=== PATIENT | female | born 1945 | race Caucasian/White ===

== ENCOUNTER 2017-04-02 15:00 | Inpatient (IN) | payer BC, MEDICARE, OTHER ==
[~2017-04-02] VITALS: Ht 165.1 cm; Wt 83.9 kg
[2017-04-02] MEDS ORDERED: ATOR20TA PO (15:24)
[2017-04-02] MEDS ORDERED: LISI40TA4 PO (15:24)
[2017-04-02] MEDS ORDERED: ACET-2154 PO (15:24)
[2017-04-02] MEDS ORDERED: HYDROMORPHONE 1 MG/1 ML DISP.SYRIN IV ONE ×3 (15:30→19:30)
[2017-04-02] MEDS ORDERED: HYDROMORPHONE 1 MG/1 ML DISP.SYRIN ONE ×3 (15:32→19:36)
[2017-04-02 16:07] LABS: BASOPHILS % (AUTO) 0.4 % (0.0-2.0); EOSINOPHILS % (AUTO) 0.3 % (0.0-7.0); HEMATOCRIT 44.8 % (31.2-41.9); HEMOGLOBIN 15.4 g/dL (10.9-14.3); LYMPHOCYTES # (AUTO) 0.9 K/uL (20.0-40.0); LYMPHOCYTES % (AUTO) 7.9 % (20.5-51.5); MEAN CORPUSCULAR HEMOGLOBIN 31.5 uug (24.7-32.8); MEAN CORPUSCULAR HGB CONC 34 g/dL (32.3-35.6); MEAN CORPUSCULAR VOLUME 91.7 fL (75.5-95.3); MONOCYTES # (AUTO) 0.7 K/uL (2.0-10.0); MONOCYTES % (AUTO) 5.6 % (0.0-11.0); NEUTROPHILS % (AUTO) 85.8 % (38.5-71.5); PLATELET COUNT (AUTO) 136 K/uL (179-408); RED BLOOD CELL COUNT(AUTO) 4.88 MIL/uL (3.63-4.92); WHITE BLOOD COUNT (AUTO) 11.7 K/uL (3.8-11.8)
[2017-04-02 16:23] LABS: CARBON DIOXIDE 27 mmol/L (21-32); CHLORIDE 105 mmol/L (98-107); CREATININE 1.2 mg/dL (0.6-1.3); GLUCOSE 130 mg/dL (74-106); POTASSIUM 4.5 mmol/L (3.5-5.1); UREA NITROGEN, BLOOD 20 mg/dL (7-18)
[2017-04-02] MEDS ORDERED: PRED2.5T PO (18:29)
[2017-04-02] MEDS ORDERED: MELO-107 PO (18:29)
[2017-04-02] MEDS ORDERED: IV NS 1000 ML 1,000 ML IV PRN (19:00)
[2017-04-02] MEDS ORDERED: MORPHINE SULFATE 2 MG/1 ML DISP.SYRIN IV PRN (19:00)
[2017-04-02] MEDS ORDERED: ACETAMINOPHEN 325 MG TABLET PO PRN (19:00)
[2017-04-02] MEDS ORDERED: ONDANSETRON 4 MG/2 ML VIAL IV PRN (19:00)
[2017-04-02] MEDS ORDERED: hydrALAZINE HCL 10 MG TABLET PO PRN (19:00)
[2017-04-02] MEDS ORDERED: MAGNESIUM HYDROXIDE 30 ML LIQUID UDC PO PRN (19:00)
[2017-04-02] MEDS: ATORVASTATIN 20 MG TABLET PO SCH (22:26)
[2017-04-02] MEDS: MORPHINE SULFATE 4 MG/1 ML DISP.SYRIN IV PRN (22:31)
[2017-04-02 23:00] VITALS: BP 143/87
[2017-04-03] MEDS ORDERED: ENOXAPARIN SODIUM 40 MG/0.4 ML DISP.SYRIN SQ SCH (01:15)
[2017-04-03] MEDS: MORPHINE SULFATE 4 MG/1 ML DISP.SYRIN IV PRN ×5 (03:17→18:53)
[2017-04-03 07:58] VITALS: BP 165/96
[2017-04-03] MEDS: HYDROCODONE/APAP 5-325MG TABLET PO PRN ×2 (08:15→13:53)
[2017-04-03 08:51] LABS: BASOPHILS % (AUTO) 0.3 % (0.0-2.0); EOSINOPHILS # (AUTO) 0.2 K/uL (0.0-0.7); EOSINOPHILS % (AUTO) 1.9 % (0.0-7.0); HEMATOCRIT 39.1 % (31.2-41.9); HEMOGLOBIN 13.7 g/dL (10.9-14.3); LYMPHOCYTES # (AUTO) 1.5 K/uL (20.0-40.0); MEAN CORPUSCULAR HEMOGLOBIN 32.1 uug (24.7-32.8); MEAN CORPUSCULAR HGB CONC 35 g/dL (32.3-35.6); MEAN CORPUSCULAR VOLUME 91.8 fL (75.5-95.3); MONOCYTES # (AUTO) 1.1 K/uL (2.0-10.0); MONOCYTES % (AUTO) 10.3 % (0.0-11.0); NEUTROPHILS # (AUTO) 7.5 K/uL (1.8-8.9); NEUTROPHILS % (AUTO) 72.5 % (38.5-71.5); PLATELET COUNT (AUTO) 99 K/uL (179-408); RED BLOOD CELL COUNT(AUTO) 4.26 MIL/uL (3.63-4.92); WHITE BLOOD COUNT (AUTO) 10.3 K/uL (3.8-11.8)
[2017-04-03 09:32] LABS: CARBON DIOXIDE 26 mmol/L (21-32); CHLORIDE 103 mmol/L (98-107); GLUCOSE 114 mg/dL (74-106); MAGNESIUM 1.6 mg/dL (1.8-2.4); PHOSPHOROUS 3.4 mg/dL (2.5-4.9); POTASSIUM 3.4 mmol/L (3.5-5.1); UREA NITROGEN, BLOOD 19 mg/dL (7-18)
[2017-04-03 11:00] VITALS: BP 106/58
[2017-04-03] MEDS ORDERED: POTASSIUM CHLORIDE 20 MEQ TAB.PRT.SR PO ONE (11:00)
[2017-04-03] MEDS ORDERED: MAGNESIUM SULFATE/D5W 100 ML IV SCH (11:00)
[2017-04-03] MEDS: LISINOPRIL 20 MG TABLET PO SCH (13:54)
[2017-04-03 14:58] LABS: *BILIRUBIN,URIN NEGATIVE (NEGATIVE); *BLOOD, URINE NEGATIVE (NEGATIVE); *CLARITY,URINE CLEAR (CLEAR); *COLOR,URINE YELLOW (YELLOW); *KETONES,URINE NEGATIVE (NEGATIVE); *PROTEIN,URINE 1+ (NEGATIVE); *UROBILINOGEN,URINE 0.2 E.U./dl (NORMAL); LEUKOCYTE ESTERASE ,URINE NEGATIVE (NEGATIVE); NITRITE, URINE NEGATIVE (NEGATIVE); UGLUCOSE NEGATIVE (NEGATIVE)
[2017-04-03 15:09] LABS: BACTERIA,URINE FEW /HPF (NONE SEEN); RBC,URINE 0-3 /HPF (0-3); SQUAMOUS EPITHELIAL CELL,UR FEW /HPF (NONE SEEN); WBC,URINE 0-3 /HPF (0-3)
[2017-04-03 20:00] VITALS: BP 137/84
[2017-04-03 20:33] LABS: CHOLESTEROL 146 mg/dL (<200); HDL CHOLESTEROL 69 mg/dL (40-60); TRIGLYCERIDES 78 MG/DL (30-150)
[2017-04-03] MEDS: ATORVASTATIN 20 MG TABLET PO SCH (20:36)
[2017-04-04] MEDS: MORPHINE SULFATE 4 MG/1 ML DISP.SYRIN IV PRN ×5 (00:22→17:18)
[2017-04-04 04:00] VITALS: BP 126/89
[2017-04-04 08:44] VITALS: BP 126/91
[2017-04-04] MEDS ORDERED: ENOXAPARIN SODIUM 40 MG/0.4 ML DISP.SYRIN SQ SCH (09:00)
[2017-04-04] MEDS: LISINOPRIL 20 MG TABLET PO SCH (09:08)
[2017-04-04 11:50] LABS: BASOPHILS # (AUTO) 0.1 K/uL (0.0-8.0); BASOPHILS % (AUTO) 0.8 % (0.0-2.0); EOSINOPHILS # (AUTO) 0.3 K/uL (0.0-0.7); EOSINOPHILS % (AUTO) 2.4 % (0.0-7.0); HEMATOCRIT 38.7 % (31.2-41.9); HEMOGLOBIN 13.5 g/dL (10.9-14.3); LYMPHOCYTES # (AUTO) 1.3 K/uL (20.0-40.0); LYMPHOCYTES % (AUTO) 11.3 % (20.5-51.5); MEAN CORPUSCULAR HEMOGLOBIN 31.8 uug (24.7-32.8); MEAN CORPUSCULAR HGB CONC 35 g/dL (32.3-35.6); MEAN CORPUSCULAR VOLUME 91.5 fL (75.5-95.3); MONOCYTES % (AUTO) 8.4 % (0.0-11.0); NEUTROPHILS # (AUTO) 9.1 K/uL (1.8-8.9); NEUTROPHILS % (AUTO) 77.1 % (38.5-71.5); PLATELET COUNT (AUTO) 97 K/uL (179-408); RED BLOOD CELL COUNT(AUTO) 4.23 MIL/uL (3.63-4.92); WHITE BLOOD COUNT (AUTO) 11.8 K/uL (3.8-11.8)
[2017-04-04 12:54] LABS: ALANINE AMINOTRANSFERASE 21 U/L (14-59); ALKALINE PHOSPHATASE 108 U/L (50-136); ASPARTATE AMINOTRANSFERASE 13 U/L (15-37); BILIRUBIN,TOTAL 0.9 mg/dL (0.2-1.0); CARBON DIOXIDE 26 mmol/L (21-32); CHLORIDE 99 mmol/L (98-107); GLUCOSE 117 mg/dL (74-106); MAGNESIUM 1.8 mg/dL (1.8-2.4); PHOSPHOROUS 3.2 mg/dL (2.5-4.9); TOTAL PROTEIN, SERUM 6.6 g/dL (6.4-8.2); UREA NITROGEN, BLOOD 13 mg/dL (7-18)
[2017-04-04 13:31] LABS: BAND % (MANUAL) 2 % (0-10); EOSINOPHILS % (MANUAL) 3 % (0-8); LYMPHOCYTES % (MANUAL) 16 % (20-40); MONOCYTES % (MANUAL) 8 % (2-10); NEUTROPHILS % (MANUAL) 71 % (42-75)
[2017-04-04] MEDS: HYDROCODONE/APAP 5-325MG TABLET PO PRN ×2 (17:19→21:45)
[2017-04-04 20:00] VITALS: BP 132/87
[2017-04-04] MEDS: ATORVASTATIN 20 MG TABLET PO SCH (20:10)
[2017-04-05 04:00] VITALS: BP 114/84
[2017-04-05] MEDS: MORPHINE SULFATE 4 MG/1 ML DISP.SYRIN IV PRN ×3 (04:04→21:14)
[2017-04-05] MEDS ORDERED: FENTANYL CITRATE 250 MCG/5 ML AMPUL ONE (06:50)
[2017-04-05] MEDS ORDERED: METOCLOPRAMIDE HCL 10 MG/2 ML VIAL ONE (06:50)
[2017-04-05] MEDS ORDERED: MIDAZOLAM HCL 2 MG/2 ML VIAL ONE (06:51)
[2017-04-05] MEDS ORDERED: POLYMYXIN B SULFATE 500,000 UNITS, BACITRACIN 50,000 UNITS, NORMAL SALINE 20 ML MC ONE ×3 (07:15)
[2017-04-05] MEDS ORDERED: LIDOCAINE HCL 1% 20 ML VIAL ONE (07:49)
[2017-04-05] MEDS ORDERED: BUPIVACAINE 0.25% 30 ML VIAL ONE (07:49)
[2017-04-05] MEDS ORDERED: BUPIVACAINE PF 0.5% 30 ML VIAL ONE (07:50)
[2017-04-05] MEDS: LISINOPRIL 20 MG TABLET PO SCH (09:00)
[2017-04-05] MEDS ORDERED: FENTANYL CITRATE 100 MCG/2 ML AMPUL ONE ×2 (09:16→11:22)
[2017-04-05] MEDS ORDERED: KETOROLAC TROMETHAMINE 30 MG INJ IM ONE (10:00)
[2017-04-05] MEDS ORDERED: CEFAZOLIN 1 G VIAL MC ONE (10:00)
[2017-04-05] MEDS ORDERED: IV NORMAL SALINE 1000 ML BAG IV ONE (10:00)
[2017-04-05] MEDS ORDERED: METOCLOPRAMIDE HCL 10 MG/2 ML VIAL IV ONE (10:00)
[2017-04-05] MEDS ORDERED: LIDOCAINE HCL 2% 20 ML VIAL MC ONE (10:00)
[2017-04-05] MEDS ORDERED: PROPOFOL 200 MG/20 ML BOTTLE IV ONE (10:00)
[2017-04-05] MEDS ORDERED: ONDANSETRON 4 MG/2 ML VIAL IV ONE (10:00)
[2017-04-05] MEDS ORDERED: SEVOFLURANE 250 ML BOTTLE IH ONE (10:00)
[2017-04-05 10:49] LABS: BASOPHILS # (AUTO) 0.1 K/uL (0.0-8.0); BASOPHILS % (AUTO) 0.7 % (0.0-2.0); EOSINOPHILS # (AUTO) 0.2 K/uL (0.0-0.7); EOSINOPHILS % (AUTO) 1.3 % (0.0-7.0); HEMATOCRIT 36.2 % (31.2-41.9); HEMOGLOBIN 12.5 g/dL (10.9-14.3); LYMPHOCYTES # (AUTO) 0.7 K/uL (20.0-40.0); LYMPHOCYTES % (AUTO) 4.8 % (20.5-51.5); MEAN CORPUSCULAR HEMOGLOBIN 31.7 uug (24.7-32.8); MEAN CORPUSCULAR HGB CONC 34 g/dL (32.3-35.6); MEAN CORPUSCULAR VOLUME 92.3 fL (75.5-95.3); MONOCYTES # (AUTO) 0.8 K/uL (2.0-10.0); MONOCYTES % (AUTO) 5.3 % (0.0-11.0); NEUTROPHILS # (AUTO) 13.4 K/uL (1.8-8.9); NEUTROPHILS % (AUTO) 87.9 % (38.5-71.5); PLATELET COUNT (AUTO) 111 K/uL (179-408); RED BLOOD CELL COUNT(AUTO) 3.93 MIL/uL (3.63-4.92); WHITE BLOOD COUNT (AUTO) 15.3 K/uL (3.8-11.8)
[2017-04-05 10:57] LABS: ALANINE AMINOTRANSFERASE 21 U/L (14-59); ALKALINE PHOSPHATASE 97 U/L (50-136); ASPARTATE AMINOTRANSFERASE 17 U/L (15-37); BILIRUBIN,TOTAL 0.9 mg/dL (0.2-1.0); CARBON DIOXIDE 23 mmol/L (21-32); CHLORIDE 103 mmol/L (98-107); CREATININE 1.1 mg/dL (0.6-1.3); GLUCOSE 159 mg/dL (74-106); MAGNESIUM 1.6 mg/dL (1.8-2.4); PHOSPHOROUS 4.3 mg/dL (2.5-4.9); POTASSIUM 4.1 mmol/L (3.5-5.1); TOTAL PROTEIN, SERUM 5.9 g/dL (6.4-8.2); UREA NITROGEN, BLOOD 15 mg/dL (7-18)
[2017-04-05] MEDS ORDERED: MORPHINE SULFATE 4 MG/1 ML DISP.SYRIN IV PRN (11:00)
[2017-04-05] MEDS ORDERED: MAGNESIUM SULFATE/D5W 100 ML IV SCH (14:45)
[2017-04-05 15:16] VITALS: BP 111/68
[2017-04-05] MEDS: CEFAZOLIN 1 G in PREMIXED 1 EACH IV SCH ×2 (15:38→23:31)
[2017-04-05] MEDS: HYDROCODONE/APAP 5-325MG TABLET PO PRN ×2 (18:02→23:58)
[2017-04-05 20:00] VITALS: BP 122/70
[2017-04-05] MEDS: ATORVASTATIN 20 MG TABLET PO SCH (21:14)
[2017-04-05] MEDS ORDERED: CEFAZOLIN 1 G VIAL ONE (23:22)
[2017-04-06] MEDS: IV NS 1000 ML 1,000 ML IV PRN ×2 (00:08→12:34)
[2017-04-06] MEDS: MORPHINE SULFATE 4 MG/1 ML DISP.SYRIN IV PRN ×4 (06:03→16:50)
[2017-04-06 06:14] VITALS: BP 100/58
[2017-04-06 07:47] LABS: EOSINOPHILS # (AUTO) 0.3 K/uL (0.0-0.7); LYMPHOCYTES # (AUTO) 0.8 K/uL (20.0-40.0)
[2017-04-06 07:57] LABS: ALANINE AMINOTRANSFERASE 22 U/L (14-59); ALKALINE PHOSPHATASE 82 U/L (50-136); ASPARTATE AMINOTRANSFERASE 39 U/L (15-37); BILIRUBIN,TOTAL 0.8 mg/dL (0.2-1.0); CARBON DIOXIDE 27 mmol/L (21-32); CHLORIDE 104 mmol/L (98-107); CREATININE 0.9 mg/dL (0.6-1.3); GLUCOSE 106 mg/dL (74-106); PHOSPHOROUS 3.5 mg/dL (2.5-4.9); POTASSIUM 4.5 mmol/L (3.5-5.1); TOTAL PROTEIN, SERUM 5.5 g/dL (6.4-8.2); UREA NITROGEN, BLOOD 14 mg/dL (7-18)
[2017-04-06 07:58] LABS: BASOPHILS % (AUTO) 0.2 % (0.0-2.0); EOSINOPHILS % (AUTO) 2.9 % (0.0-7.0); LYMPHOCYTES % (AUTO) 8.2 % (20.5-51.5); MEAN CORPUSCULAR HEMOGLOBIN 32.1 uug (24.7-32.8); MEAN CORPUSCULAR HGB CONC 35 g/dL (32.3-35.6); MEAN CORPUSCULAR VOLUME 92.8 fL (75.5-95.3); MONOCYTES % (AUTO) 10.3 % (0.0-11.0); NEUTROPHILS # (AUTO) 7.9 K/uL (1.8-8.9); NEUTROPHILS % (AUTO) 78.4 % (38.5-71.5); RED BLOOD CELL COUNT(AUTO) 3.27 MIL/uL (3.63-4.92)
[2017-04-06 08:01] LABS: HEMATOCRIT 30.3 % (31.2-41.9); HEMOGLOBIN 10.5 g/dL (10.9-14.3); PLATELET COUNT (AUTO) 78 K/uL (179-408); WHITE BLOOD COUNT (AUTO) 10.1 K/uL (3.8-11.8)
[2017-04-06] MEDS: LISINOPRIL 20 MG TABLET PO SCH (09:39)
[2017-04-06 09:45] VITALS: BP 123/67
[2017-04-06 10:26] LABS: BAND % (MANUAL) 1 % (0-10); EOSINOPHILS % (MANUAL) 4 % (0-8); LYMPHOCYTES % (MANUAL) 7 % (20-40); MONOCYTES % (MANUAL) 9 % (2-10); NEUTROPHILS % (MANUAL) 79 % (42-75)
[2017-04-06 11:04] VITALS: BP 130/73
[2017-04-06 11:06] LABS: IRON, SERUM 12 ug/dL (50-175)
[2017-04-06] MEDS ORDERED: LORAZEPAM 2 MG/1 ML VIAL IV PRN (12:30)
[2017-04-06] MEDS: FERROUS SULFATE 325 MG TABEC PO SCH ×2 (12:30→20:03)
[2017-04-06] MEDS ORDERED: IOHEXOL 350 100 ML INFUS..BTL IV ONE (12:47)
[2017-04-06] MEDS ORDERED: Z GUARD REMEDY PASTE 57 GM TUBE TOP PRN (14:00)
[2017-04-06 15:06] VITALS: BP 130/64
[2017-04-06 20:00] VITALS: BP 111/55
[2017-04-06] MEDS: ATORVASTATIN 20 MG TABLET PO SCH (20:03)
[2017-04-06] MEDS: HYDROCODONE/APAP 5-325MG TABLET PO PRN (20:04)
[2017-04-06] MEDS: MORPHINE SULFATE 4 MG/1 ML DISP.SYRIN IM PRN (21:51)
[2017-04-06] MEDS ORDERED: MORPHINE SULFATE 4 MG/1 ML DISP.SYRIN ONE (22:06)
[2017-04-06] MEDS: ARGATROBAN IV SCH (22:35)
[2017-04-06] MEDS: NORMAL SALINE IV SCH (22:35)
[2017-04-07 01:01] VITALS: BP 107/56
[2017-04-07] MEDS: MORPHINE SULFATE 4 MG/1 ML DISP.SYRIN IM PRN (02:05)
[2017-04-07 02:15] LABS: BASOPHILS % (AUTO) 0.3 % (0.0-2.0); EOSINOPHILS # (AUTO) 0.4 K/uL (0.0-0.7); EOSINOPHILS % (AUTO) 4.1 % (0.0-7.0); HEMOGLOBIN 9.6 g/dL (10.9-14.3); LYMPHOCYTES # (AUTO) 1.5 K/uL (20.0-40.0); MEAN CORPUSCULAR HEMOGLOBIN 32.8 uug (24.7-32.8); MEAN CORPUSCULAR HGB CONC 36 g/dL (32.3-35.6); MEAN CORPUSCULAR VOLUME 92.5 fL (75.5-95.3); MONOCYTES # (AUTO) 1.3 K/uL (2.0-10.0); MONOCYTES % (AUTO) 12.7 % (0.0-11.0); NEUTROPHILS # (AUTO) 7.2 K/uL (1.8-8.9); NEUTROPHILS % (AUTO) 68.9 % (38.5-71.5); PLATELET COUNT (AUTO) 92 K/uL (179-408); RED BLOOD CELL COUNT(AUTO) 2.92 MIL/uL (3.63-4.92); WHITE BLOOD COUNT (AUTO) 10.5 K/uL (3.8-11.8)
[2017-04-07 02:18] LABS: ALANINE AMINOTRANSFERASE 24 U/L (14-59); ALKALINE PHOSPHATASE 85 U/L (50-136); ASPARTATE AMINOTRANSFERASE 31 U/L (15-37); BILIRUBIN,TOTAL 0.9 mg/dL (0.2-1.0); CARBON DIOXIDE 27 mmol/L (21-32); CHLORIDE 103 mmol/L (98-107); CREATININE 0.9 mg/dL (0.6-1.3); GLUCOSE 105 mg/dL (74-106); MAGNESIUM 1.7 mg/dL (1.8-2.4); PHOSPHOROUS 3.1 mg/dL (2.5-4.9); POTASSIUM 4.1 mmol/L (3.5-5.1); TOTAL PROTEIN, SERUM 5.5 g/dL (6.4-8.2); UREA NITROGEN, BLOOD 14 mg/dL (7-18)
[2017-04-07] MEDS ORDERED: MORPHINE SULFATE 4 MG/1 ML DISP.SYRIN ONE (02:19)
[2017-04-07 05:26] LABS: BAND % (MANUAL) 2 % (0-10); EOSINOPHILS % (MANUAL) 7 % (0-8); LYMPHOCYTES % (MANUAL) 11 % (20-40); MONOCYTES % (MANUAL) 6 % (2-10); NEUTROPHILS % (MANUAL) 74 % (42-75)
[2017-04-07 06:32] VITALS: BP 106/68
[2017-04-07] MEDS: LISINOPRIL 20 MG TABLET PO SCH ×2 (09:00→09:16)
[2017-04-07] MEDS: FERROUS SULFATE 325 MG TABEC PO SCH ×2 (09:12→20:34)
[2017-04-07] MEDS: MORPHINE SULFATE 4 MG/1 ML DISP.SYRIN IV PRN ×4 (09:13→23:08)
[2017-04-07 11:08] VITALS: BP 118/63
[2017-04-07] MEDS ORDERED: CYANOCOBALAMIN 1000 MCG/ML VIAL IM SCH (11:15)
[2017-04-07] MEDS ORDERED: MAGNESIUM SULFATE/D5W 100 ML IV SCH (11:15)
[2017-04-07] MEDS ORDERED: CYANOCOBALAMIN 1,000 MCG TABLET PO SCH (11:15)
[2017-04-07] MEDS: MAGNESIUM HYDROXIDE 30 ML LIQUID UDC PO PRN (12:43)
[2017-04-07] MEDS ORDERED: BISACODYL 10 MG SUPP.RECT RC PRN (14:15)
[2017-04-07 15:00] VITALS: BP 117/70
[2017-04-07] MEDS: FOLIC ACID 1 MG TABLET PO SCH (17:00)
[2017-04-07] MEDS: CYANOCOBALAMIN 1000 MCG/ML VIAL IM SCH (17:00)
[2017-04-07 20:00] VITALS: BP 118/63
[2017-04-07] MEDS: DOCUSATE SODIUM 100 MG CAPSULE PO SCH (20:34)
[2017-04-07] MEDS: ATORVASTATIN 20 MG TABLET PO SCH (20:34)
[2017-04-07] MEDS: NORMAL SALINE IV SCH (21:51)
[2017-04-07] MEDS: ARGATROBAN IV SCH (21:51)
[2017-04-08] MEDS: IV NS 1000 ML 1,000 ML IV PRN (03:34)
[2017-04-08] MEDS: MORPHINE SULFATE 4 MG/1 ML DISP.SYRIN IV PRN ×5 (03:35→21:16)
[2017-04-08] MEDS: MAGNESIUM HYDROXIDE 30 ML LIQUID UDC PO PRN (04:57)
[2017-04-08 06:05] VITALS: BP 148/68
[2017-04-08 06:46] LABS: EOSINOPHILS # (AUTO) 0.3 K/uL (0.0-0.7); NEUTROPHILS # (AUTO) 8.4 K/uL (1.8-8.9)
[2017-04-08 06:59] LABS: ALANINE AMINOTRANSFERASE 35 U/L (14-59); ALKALINE PHOSPHATASE 103 U/L (50-136); ASPARTATE AMINOTRANSFERASE 34 U/L (15-37); BILIRUBIN,TOTAL 0.9 mg/dL (0.2-1.0); CARBON DIOXIDE 27 mmol/L (21-32); CHLORIDE 99 mmol/L (98-107); CREATININE 0.8 mg/dL (0.6-1.3); GLUCOSE 99 mg/dL (74-106); MAGNESIUM 1.8 mg/dL (1.8-2.4); PHOSPHOROUS 3.3 mg/dL (2.5-4.9); POTASSIUM 3.6 mmol/L (3.5-5.1); TOTAL PROTEIN, SERUM 5.9 g/dL (6.4-8.2); UREA NITROGEN, BLOOD 15 mg/dL (7-18)
[2017-04-08 07:08] LABS: BASOPHILS # (AUTO) 0.1 K/uL (0.0-8.0); BASOPHILS % (AUTO) 0.5 % (0.0-2.0); EOSINOPHILS % (AUTO) 3.2 % (0.0-7.0); HEMATOCRIT 27.2 % (31.2-41.9); HEMOGLOBIN 9.4 g/dL (10.9-14.3); LYMPHOCYTES # (AUTO) 0.9 K/uL (20.0-40.0); LYMPHOCYTES % (AUTO) 8.3 % (20.5-51.5); MEAN CORPUSCULAR HEMOGLOBIN 31.9 uug (24.7-32.8); MEAN CORPUSCULAR HGB CONC 35 g/dL (32.3-35.6); MEAN CORPUSCULAR VOLUME 91.8 fL (75.5-95.3); MONOCYTES % (AUTO) 9.1 % (0.0-11.0); NEUTROPHILS % (AUTO) 78.9 % (38.5-71.5); RED BLOOD CELL COUNT(AUTO) 2.96 MIL/uL (3.63-4.92); WHITE BLOOD COUNT (AUTO) 10.6 K/uL (3.8-11.8)
[2017-04-08 07:09] LABS: PLATELET COUNT (AUTO) 121 K/uL (179-408)
[2017-04-08] MEDS: FOLIC ACID 1 MG TABLET PO SCH (08:45)
[2017-04-08] MEDS: CYANOCOBALAMIN 1000 MCG/ML VIAL IM SCH (08:45)
[2017-04-08] MEDS: FERROUS SULFATE 325 MG TABEC PO SCH ×2 (08:45→21:19)
[2017-04-08] MEDS: DOCUSATE SODIUM 100 MG CAPSULE PO SCH ×2 (08:45→21:19)
[2017-04-08] MEDS: LISINOPRIL 20 MG TABLET PO SCH (08:46)
[2017-04-08 11:15] VITALS: BP 130/68
[2017-04-08] MEDS ORDERED: BISACODYL 5 MG TABLET.DR PO ONE (11:15)
[2017-04-08] MEDS: PANTOPRAZOLE SODIUM 40 MG TABLET.DR PO SCH (13:15)
[2017-04-08] MEDS: SOD FERRIC GLUC COMPLX/SUCROSE 125 MG in IV NORMAL SALINE 100 ML IV SCH (14:27)
[2017-04-08 15:10] VITALS: BP 124/69
[2017-04-08 20:00] VITALS: BP 106/78
[2017-04-08] MEDS: SENNOSIDES 1 TABLET PO SCH (21:19)
[2017-04-08] MEDS: ATORVASTATIN 20 MG TABLET PO SCH (21:19)
[2017-04-09] MEDS: MORPHINE SULFATE 4 MG/1 ML DISP.SYRIN IV PRN ×2 (00:34→04:13)
[2017-04-09 06:02] VITALS: BP 123/67
[2017-04-09] MEDS: PANTOPRAZOLE SODIUM 40 MG TABLET.DR PO SCH (06:03)
[2017-04-09] MEDS: NORMAL SALINE IV SCH ×3 (06:07→17:48)
[2017-04-09] MEDS: ARGATROBAN IV SCH ×3 (06:07→17:48)
[2017-04-09 07:13] LABS: BASOPHILS % (AUTO) 0.3 % (0.0-2.0); EOSINOPHILS # (AUTO) 0.4 K/uL (0.0-0.7); EOSINOPHILS % (AUTO) 3.6 % (0.0-7.0); HEMOGLOBIN 9.1 g/dL (10.9-14.3); LYMPHOCYTES % (AUTO) 9.4 % (20.5-51.5); MEAN CORPUSCULAR HGB CONC 35 g/dL (32.3-35.6); MONOCYTES # (AUTO) 0.9 K/uL (2.0-10.0); MONOCYTES % (AUTO) 9.3 % (0.0-11.0); NEUTROPHILS # (AUTO) 7.8 K/uL (1.8-8.9); NEUTROPHILS % (AUTO) 77.4 % (38.5-71.5); PLATELET COUNT (AUTO) 152 K/uL (179-408); RED BLOOD CELL COUNT(AUTO) 2.83 MIL/uL (3.63-4.92); WHITE BLOOD COUNT (AUTO) 10.1 K/uL (3.8-11.8)
[2017-04-09 07:29] LABS: ALANINE AMINOTRANSFERASE 51 U/L (14-59); ALKALINE PHOSPHATASE 130 U/L (50-136); ASPARTATE AMINOTRANSFERASE 38 U/L (15-37); CARBON DIOXIDE 26 mmol/L (21-32); CHLORIDE 98 mmol/L (98-107); CREATININE 0.9 mg/dL (0.6-1.3); GLUCOSE 119 mg/dL (74-106); MAGNESIUM 1.8 mg/dL (1.8-2.4); POTASSIUM 3.8 mmol/L (3.5-5.1); TOTAL PROTEIN, SERUM 5.9 g/dL (6.4-8.2); UREA NITROGEN, BLOOD 11 mg/dL (7-18)
[2017-04-09 08:10] LABS: *IMMUNOGLOBULIN G, SERUM 603 mg/dL (700-1600); IMMUNOGLOBULIN A, SERUM 153 mg/dL (64-422); IMMUNOGLOBULIN M, SERUM 36 mg/dL (26-217)
[2017-04-09] MEDS: CYANOCOBALAMIN 1000 MCG/ML VIAL IM SCH (09:38)
[2017-04-09] MEDS: IV NS 1000 ML 1,000 ML IV PRN ×2 (09:38→23:30)
[2017-04-09] MEDS: DOCUSATE SODIUM 100 MG CAPSULE PO SCH ×2 (09:38→20:49)
[2017-04-09] MEDS: FERROUS SULFATE 325 MG TABEC PO SCH ×2 (09:39→20:49)
[2017-04-09] MEDS: FOLIC ACID 1 MG TABLET PO SCH (09:39)
[2017-04-09] MEDS: HYDROCODONE/APAP 5-325MG TABLET PO PRN ×4 (09:40→20:55)
[2017-04-09] MEDS: LISINOPRIL 20 MG TABLET PO SCH (09:42)
[2017-04-09 11:13] VITALS: BP 110/70
[2017-04-09] MEDS: SOD FERRIC GLUC COMPLX/SUCROSE 125 MG in IV NORMAL SALINE 100 ML IV SCH (13:59)
[2017-04-09 15:26] VITALS: BP 107/63
[2017-04-09 20:10] VITALS: BP 134/74
[2017-04-09] MEDS: SENNOSIDES 1 TABLET PO SCH (20:49)
[2017-04-09] MEDS: ATORVASTATIN 20 MG TABLET PO SCH (20:49)
[2017-04-10] MEDS: HYDROCODONE/APAP 5-325MG TABLET PO PRN ×3 (01:16→09:15)
[2017-04-10 06:15] VITALS: BP 138/71
[2017-04-10] MEDS: PANTOPRAZOLE SODIUM 40 MG TABLET.DR PO SCH (06:17)
[2017-04-10 06:42] LABS: ALANINE AMINOTRANSFERASE 77 U/L (14-59); ALKALINE PHOSPHATASE 155 U/L (50-136); ASPARTATE AMINOTRANSFERASE 51 U/L (15-37); CARBON DIOXIDE 28 mmol/L (21-32); CHLORIDE 101 mmol/L (98-107); CREATININE 0.7 mg/dL (0.6-1.3); GLUCOSE 90 mg/dL (74-106); MAGNESIUM 1.8 mg/dL (1.8-2.4); PHOSPHOROUS 3.4 mg/dL (2.5-4.9); POTASSIUM 3.5 mmol/L (3.5-5.1); TOTAL PROTEIN, SERUM 6.1 g/dL (6.4-8.2); UREA NITROGEN, BLOOD 13 mg/dL (7-18)
[2017-04-10 06:49] LABS: BASOPHILS % (AUTO) 0.3 % (0.0-2.0); EOSINOPHILS # (AUTO) 0.4 K/uL (0.0-0.7); EOSINOPHILS % (AUTO) 3.6 % (0.0-7.0); HEMATOCRIT 27.9 % (31.2-41.9); HEMOGLOBIN 9.7 g/dL (10.9-14.3); LYMPHOCYTES % (AUTO) 8.6 % (20.5-51.5); MEAN CORPUSCULAR HEMOGLOBIN 31.9 uug (24.7-32.8); MEAN CORPUSCULAR HGB CONC 35 g/dL (32.3-35.6); MEAN CORPUSCULAR VOLUME 92.1 fL (75.5-95.3); MONOCYTES % (AUTO) 9.1 % (0.0-11.0); NEUTROPHILS # (AUTO) 8.7 K/uL (1.8-8.9); NEUTROPHILS % (AUTO) 78.4 % (38.5-71.5); RED BLOOD CELL COUNT(AUTO) 3.03 MIL/uL (3.63-4.92); WHITE BLOOD COUNT (AUTO) 11.1 K/uL (3.8-11.8)
[2017-04-10 07:06] LABS: PLATELET COUNT (AUTO) 199 K/uL (179-408)
[2017-04-10 08:06] LABS: A/G RATIO 1.1 (0.7-1.7); ALBUMIN 2.6 g/dL (2.9-4.4); ALPHA-1-GLOBULIN 0.4 g/dL (0.0-0.4); ALPHA-2-GLOBULIN 0.8 g/dL (0.4-1.0); BETA GLOBULIN 0.6 g/dL (0.7-1.3); GAMMA GLOBULIN 0.5 g/dL (0.4-1.8); GLOBULIN, TOTAL 2.3 g/dL (2.2-3.9); M-SPIKE Not Observed g/dL (Not Observed)
[2017-04-10] MEDS: FERROUS SULFATE 325 MG TABEC PO SCH ×2 (09:06→21:04)
[2017-04-10] MEDS: DOCUSATE SODIUM 100 MG CAPSULE PO SCH ×2 (09:06→21:04)
[2017-04-10] MEDS: FOLIC ACID 1 MG TABLET PO SCH (09:06)
[2017-04-10] MEDS: CYANOCOBALAMIN 1000 MCG/ML VIAL IM SCH (09:06)
[2017-04-10] MEDS: LISINOPRIL 20 MG TABLET PO SCH (09:13)
[2017-04-10] MEDS: MORPHINE SULFATE 4 MG/1 ML DISP.SYRIN IV PRN ×3 (11:04→18:10)
[2017-04-10 11:50] VITALS: BP 117/55
[2017-04-10] MEDS: SOD FERRIC GLUC COMPLX/SUCROSE 125 MG in IV NORMAL SALINE 100 ML IV SCH (14:01)
[2017-04-10] MEDS: NORMAL SALINE IV SCH (15:00)
[2017-04-10] MEDS: ARGATROBAN IV SCH (15:00)
[2017-04-10 20:00] VITALS: BP 150/66
[2017-04-10] MEDS: ATORVASTATIN 20 MG TABLET PO SCH (21:04)
[2017-04-10] MEDS: SENNOSIDES 1 TABLET PO SCH (21:04)
[2017-04-11] MEDS: IV NS 1000 ML 1,000 ML IV PRN ×2 (03:33→17:35)
[2017-04-11] MEDS: MORPHINE SULFATE 4 MG/1 ML DISP.SYRIN IV PRN ×3 (04:25→13:33)
[2017-04-11 04:50] VITALS: BP 139/73
[2017-04-11] MEDS: PANTOPRAZOLE SODIUM 40 MG TABLET.DR PO SCH (06:20)
[2017-04-11] MEDS: HYDROCODONE/APAP 5-325MG TABLET PO PRN (06:37)
[2017-04-11 07:25] LABS: BASOPHILS % (AUTO) 0.4 % (0.0-2.0); EOSINOPHILS # (AUTO) 0.3 K/uL (0.0-0.7); EOSINOPHILS % (AUTO) 3.1 % (0.0-7.0); HEMOGLOBIN 9.8 g/dL (10.9-14.3); LYMPHOCYTES # (AUTO) 0.9 K/uL (20.0-40.0); LYMPHOCYTES % (AUTO) 9.1 % (20.5-51.5); MEAN CORPUSCULAR HEMOGLOBIN 32.1 uug (24.7-32.8); MEAN CORPUSCULAR HGB CONC 35 g/dL (32.3-35.6); MEAN CORPUSCULAR VOLUME 91.6 fL (75.5-95.3); MONOCYTES # (AUTO) 0.6 K/uL (2.0-10.0); MONOCYTES % (AUTO) 5.7 % (0.0-11.0); NEUTROPHILS # (AUTO) 8.3 K/uL (1.8-8.9); NEUTROPHILS % (AUTO) 81.7 % (38.5-71.5); PLATELET COUNT (AUTO) 238 K/uL (179-408); RED BLOOD CELL COUNT(AUTO) 3.06 MIL/uL (3.63-4.92); WHITE BLOOD COUNT (AUTO) 10.1 K/uL (3.8-11.8)
[2017-04-11 07:35] LABS: CARBON DIOXIDE 24 mmol/L (21-32); CHLORIDE 105 mmol/L (98-107); CREATININE 0.8 mg/dL (0.6-1.3); GLUCOSE 125 mg/dL (74-106); POTASSIUM 3.8 mmol/L (3.5-5.1); UREA NITROGEN, BLOOD 11 mg/dL (7-18)
[2017-04-11 08:59] VITALS: BP 117/73
[2017-04-11] MEDS: CYANOCOBALAMIN 1000 MCG/ML VIAL IM SCH (09:14)
[2017-04-11] MEDS: FOLIC ACID 1 MG TABLET PO SCH (09:14)
[2017-04-11] MEDS: DOCUSATE SODIUM 100 MG CAPSULE PO SCH ×2 (09:14→21:11)
[2017-04-11] MEDS: FERROUS SULFATE 325 MG TABEC PO SCH ×2 (09:15→21:11)
[2017-04-11] MEDS: LISINOPRIL 20 MG TABLET PO SCH (09:15)
[2017-04-11 10:13] VITALS: BP 135/65
[2017-04-11 11:04] VITALS: BP 124/75
[2017-04-11] MEDS: NORMAL SALINE IV SCH (11:59)
[2017-04-11] MEDS: ARGATROBAN IV SCH (11:59)
[2017-04-11] MEDS: SOD FERRIC GLUC COMPLX/SUCROSE 125 MG in IV NORMAL SALINE 100 ML IV SCH (13:36)
[2017-04-11 15:04] VITALS: BP 104/72
[2017-04-11 19:00] VITALS: BP 116/57
[2017-04-11] MEDS ORDERED: WARFARIN SODIUM 3 MG TABLET PO SCH (19:30)
[2017-04-11] MEDS: ATORVASTATIN 20 MG TABLET PO SCH (21:11)
[2017-04-11] MEDS: SENNOSIDES 1 TABLET PO SCH (21:11)
[2017-04-12] MEDS: MORPHINE SULFATE 4 MG/1 ML DISP.SYRIN IV PRN ×4 (05:01→20:29)
[2017-04-12] MEDS: IV NS 1000 ML 1,000 ML IV PRN ×2 (05:44→18:32)
[2017-04-12] MEDS: PANTOPRAZOLE SODIUM 40 MG TABLET.DR PO SCH (06:13)
[2017-04-12 09:21] VITALS: BP 127/69
[2017-04-12] MEDS: LISINOPRIL 20 MG TABLET PO SCH (09:22)
[2017-04-12] MEDS: CYANOCOBALAMIN 1000 MCG/ML VIAL IM SCH (09:22)
[2017-04-12] MEDS: FOLIC ACID 1 MG TABLET PO SCH (09:22)
[2017-04-12] MEDS: DOCUSATE SODIUM 100 MG CAPSULE PO SCH ×2 (09:22→20:29)
[2017-04-12] MEDS: FERROUS SULFATE 325 MG TABEC PO SCH ×2 (09:22→20:29)
[2017-04-12 09:45] LABS: CARBON DIOXIDE 29 mmol/L (21-32); CHLORIDE 103 mmol/L (98-107); CREATININE 0.8 mg/dL (0.6-1.3); GLUCOSE 97 mg/dL (74-106); POTASSIUM 3.8 mmol/L (3.5-5.1); UREA NITROGEN, BLOOD 12 mg/dL (7-18)
[2017-04-12 10:13] LABS: BASOPHILS # (AUTO) 0.1 K/uL (0.0-8.0); BASOPHILS % (AUTO) 0.5 % (0.0-2.0); EOSINOPHILS # (AUTO) 0.3 K/uL (0.0-0.7); EOSINOPHILS % (AUTO) 3.2 % (0.0-7.0); HEMATOCRIT 26.5 % (31.2-41.9); HEMOGLOBIN 9.2 g/dL (10.9-14.3); LYMPHOCYTES % (AUTO) 9.9 % (20.5-51.5); MEAN CORPUSCULAR HEMOGLOBIN 32.3 uug (24.7-32.8); MEAN CORPUSCULAR HGB CONC 35 g/dL (32.3-35.6); MEAN CORPUSCULAR VOLUME 92.7 fL (75.5-95.3); MONOCYTES # (AUTO) 0.9 K/uL (2.0-10.0); MONOCYTES % (AUTO) 8.5 % (0.0-11.0); NEUTROPHILS % (AUTO) 77.9 % (38.5-71.5); PLATELET COUNT (AUTO) 265 K/uL (179-408); RED BLOOD CELL COUNT(AUTO) 2.86 MIL/uL (3.63-4.92); WHITE BLOOD COUNT (AUTO) 10.3 K/uL (3.8-11.8)
[2017-04-12] MEDS: NORMAL SALINE IV SCH (10:24)
[2017-04-12] MEDS: ARGATROBAN IV SCH (10:24)
[2017-04-12 11:08] VITALS: BP 113/68
[2017-04-12 11:46] LABS: BILIRUBIN,DIRECT 0.1 mg/dL (0.0-0.2); BILIRUBIN,TOTAL 0.7 mg/dL (0.2-1.0); TOTAL PROTEIN, SERUM 5.7 g/dL (6.4-8.2)
[2017-04-12 15:04] VITALS: BP 123/66
[2017-04-12] MEDS: WARFARIN SODIUM 3 MG TABLET PO SCH (16:44)
[2017-04-12 20:00] VITALS: BP 133/77
[2017-04-12] MEDS: ATORVASTATIN 20 MG TABLET PO SCH (20:29)
[2017-04-12] MEDS: SENNOSIDES 1 TABLET PO SCH (20:29)
[2017-04-13] MEDS: MORPHINE SULFATE 4 MG/1 ML DISP.SYRIN IV PRN ×4 (02:18→19:50)
[2017-04-13 04:59] VITALS: BP 143/79
[2017-04-13] MEDS: PANTOPRAZOLE SODIUM 40 MG TABLET.DR PO SCH (06:11)
[2017-04-13 07:12] LABS: ALANINE AMINOTRANSFERASE 81 U/L (14-59); ALKALINE PHOSPHATASE 145 U/L (50-136); ASPARTATE AMINOTRANSFERASE 41 U/L (15-37); BILIRUBIN,TOTAL 0.8 mg/dL (0.2-1.0); CARBON DIOXIDE 26 mmol/L (21-32); CHLORIDE 102 mmol/L (98-107); CREATININE 0.7 mg/dL (0.6-1.3); GLUCOSE 92 mg/dL (74-106); MAGNESIUM 1.6 mg/dL (1.8-2.4); PHOSPHOROUS 3.7 mg/dL (2.5-4.9); POTASSIUM 3.4 mmol/L (3.5-5.1); TOTAL PROTEIN, SERUM 5.8 g/dL (6.4-8.2); UREA NITROGEN, BLOOD 12 mg/dL (7-18)
[2017-04-13 07:14] LABS: BASOPHILS % (AUTO) 0.5 % (0.0-2.0); EOSINOPHILS # (AUTO) 0.3 K/uL (0.0-0.7); EOSINOPHILS % (AUTO) 3.7 % (0.0-7.0); HEMATOCRIT 27.4 % (31.2-41.9); HEMOGLOBIN 9.5 g/dL (10.9-14.3); LYMPHOCYTES # (AUTO) 1.3 K/uL (20.0-40.0); LYMPHOCYTES % (AUTO) 13.8 % (20.5-51.5); MEAN CORPUSCULAR HEMOGLOBIN 32.3 uug (24.7-32.8); MEAN CORPUSCULAR HGB CONC 35 g/dL (32.3-35.6); MEAN CORPUSCULAR VOLUME 92.9 fL (75.5-95.3); MONOCYTES # (AUTO) 0.7 K/uL (2.0-10.0); MONOCYTES % (AUTO) 7.9 % (0.0-11.0); NEUTROPHILS # (AUTO) 6.9 K/uL (1.8-8.9); NEUTROPHILS % (AUTO) 74.1 % (38.5-71.5); PLATELET COUNT (AUTO) 284 K/uL (179-408); RED BLOOD CELL COUNT(AUTO) 2.95 MIL/uL (3.63-4.92); WHITE BLOOD COUNT (AUTO) 9.3 K/uL (3.8-11.8)
[2017-04-13] MEDS: IV NS 1000 ML 1,000 ML IV PRN (07:42)
[2017-04-13 08:10] VITALS: BP 141/85
[2017-04-13] MEDS: FOLIC ACID 1 MG TABLET PO SCH (08:12)
[2017-04-13] MEDS: CYANOCOBALAMIN 1000 MCG/ML VIAL IM SCH (08:12)
[2017-04-13] MEDS: DOCUSATE SODIUM 100 MG CAPSULE PO SCH ×2 (08:12→21:00)
[2017-04-13] MEDS: FERROUS SULFATE 325 MG TABEC PO SCH ×2 (08:12→21:35)
[2017-04-13] MEDS: LISINOPRIL 20 MG TABLET PO SCH (08:12)
[2017-04-13 09:33] LABS: BASOPHILS % (MANUAL) 1 % (0-2); EOSINOPHILS % (MANUAL) 4 % (0-8); LYMPHOCYTES % (MANUAL) 10 % (20-40); METAMYELOCYTES % 3 % (0-1); MONOCYTES % (MANUAL) 10 % (2-10); MYELOCYTES % 1 % (0-0); NEUTROPHILS % (MANUAL) 71 % (42-75)
[2017-04-13 11:40] VITALS: BP 133/73
[2017-04-13] MEDS ORDERED: MAGNESIUM OXIDE 400 MG TABLET PO ONE (12:15)
[2017-04-13] MEDS ORDERED: POTASSIUM CHLORIDE 20 MEQ TAB.PRT.SR PO ONE (12:15)
[2017-04-13] MEDS: HYDROCODONE/APAP 5-325MG TABLET PO PRN (12:26)
[2017-04-13 15:27] VITALS: BP 109/63
[2017-04-13] MEDS: WARFARIN SODIUM 3 MG TABLET PO SCH (16:36)
[2017-04-13] MEDS ORDERED: PANT40TA2 PO (17:02)
[2017-04-13] MEDS ORDERED: SENN-167 PO (17:02)
[2017-04-13] MEDS ORDERED: FOLI1TAB16 PO (17:02)
[2017-04-13] MEDS ORDERED: DOCU100C36 PO (17:02)
[2017-04-13] MEDS ORDERED: MENT71OI TOP (17:02)
[2017-04-13] MEDS ORDERED: BISA10SU12 RC (17:02)
[2017-04-13] MEDS ORDERED: CALC-555 PO (17:02)
[2017-04-13] MEDS ORDERED: FERR325T28 PO (17:02)
[2017-04-13] MEDS ORDERED: MAGN400O6 PO (17:02)
[2017-04-13] MEDS ORDERED: ACET325T53 PO (17:02)
[2017-04-13] MEDS ORDERED: HYDR-3326 PO (17:02)
[2017-04-13] MEDS ORDERED: CYAN10006 IM (17:02)
[2017-04-13] MEDS ORDERED: WARF3TAB29 PO (17:02)
[2017-04-13] MEDS ORDERED: WARFARIN SODIUM 2 MG TABLET PO ONE (17:30)
[2017-04-13 20:00] VITALS: BP 113/69
[2017-04-13] MEDS: SENNOSIDES 1 TABLET PO SCH (21:00)
[2017-04-13] MEDS: ATORVASTATIN 20 MG TABLET PO SCH (21:35)
== END 2017-04-13 22:00 | DRG 488 ==
LOC: ER 15:00 → MEDSURG1 20:38 → MED 04-05 11:53 → TELE 04-06 11:23 → MED 04-07 11:00
PROVIDERS: ADMIT Nurse Practitioner Acute Care; ATTEND Nurse Practitioner Acute Care
PROC: 0SQD0ZZ Repair Left Knee Joint, Open Approach (ICD-10-PCS; 2017-04-05)
PROC: 0QSH04Z Reposition Left Tibia with Internal Fixation Device, Open Approach (ICD-10-PCS; principal; 2017-04-05 06:40)
DX: S82.142A Displaced bicondylar fracture of left tibia, initial encounter for closed fracture (principal); E43 Unspecified severe protein-calorie malnutrition; D61.818 Other pancytopenia; D51.9 Vitamin B12 deficiency anemia, unspecified; E27.8 Other specified disorders of adrenal gland; I82.442 Acute embolism and thrombosis of left tibial vein; D62 Acute posthemorrhagic anemia; M25.062 Hemarthrosis, left knee; D75.1 Secondary polycythemia; S82.832A Other fracture of upper and lower end of left fibula, initial encounter for closed fracture; E83.42 Hypomagnesemia; E83.51 Hypocalcemia; M06.9 Rheumatoid arthritis, unspecified; E78.5 Hyperlipidemia, unspecified; S83.282A Other tear of lateral meniscus, current injury, left knee, initial encounter; W01.0XXA Fall on same level from slipping, tripping and stumbling without subsequent striking against object, initial encounter; Y92.89 Other specified places as the place of occurrence of the external cause; Z85.828 Personal history of other malignant neoplasm of skin; Z79.52 Long term (current) use of systemic steroids; Z79.899 Other long term (current) drug therapy; E87.6 Hypokalemia; E66.9 Obesity, unspecified; Z68.30 Body mass index [BMI] 30.0-30.9, adult; K59.00 Constipation, unspecified; I10 Essential (primary) hypertension; D18.09 Hemangioma of other sites; E53.8 Deficiency of other specified B group vitamins; D50.9 Iron deficiency anemia, unspecified; F41.9 Anxiety disorder, unspecified; K76.0 Fatty (change of) liver, not elsewhere classified; D35.00 Benign neoplasm of unspecified adrenal gland; R31.9 Hematuria, unspecified
CPT/HCPCS: 36415; 70030-TC; 71045; 71275; 73560; 73590; 73700; 76000; 82746; 82784; 83550; 83735; 84100; 84155; 84165; 84443; 85025; 85520; 85610; 85730; 86334; 86850; 86900; 86901; 87086; 93005; 97110; 97116; 97165; 97530; A4649; A4663; J0690; J0883; J1170; J1650; J1885; J2250; J2270; J2405; J2765; J2916; J3010; J3420; J3475; J3490; J7030; J7050; Q9967